=== PATIENT | male | born 1985 | race Hispanic/Latino ===

== ENCOUNTER 2020-02-15 08:50 | Day surgery (SDC) | payer BC ==
[2020-02-15] MEDS ORDERED: FENTANYL CITR 100 MCG/2 ML ONE (09:13)
[2020-02-15] MEDS ORDERED: propofoL 200 MG/20 ML VIAL IV ONE (09:13)
[2020-02-15] MEDS ORDERED: MIDAZOLAM HCL 2 MG/2 ML INJ ONE (09:13)
[2020-02-15] MEDS ORDERED: dexAMETHasone 4 MG/ML VIAL ONE (09:13)
[2020-02-15] MEDS ORDERED: ONDANSETRON 4 MG/2 ML VIAL ONE ×2 (09:13→11:08)
[2020-02-15] MEDS ORDERED: LIDOCAINE 1% MPF 5 ML VIAL ONE (09:13)
[2020-02-15] MEDS ORDERED: KETOROLAC 30 MG/ML INJ ONE (09:13)
[2020-02-15] MEDS ORDERED: Ringers Lactate 1,000 ML IV ONE (09:27)
[2020-02-15] MEDS ORDERED: CEFAZOLIN/SWI 1gm 1 GM/10 ML SYR ONE (09:27)
[2020-02-15 09:31] LABS: Absolute Lymphocytes (CBC) 1.7 K/uL (0.7-4.9); Basophils % 0.5 % (0-1.3); Lymphocytes % 17.9 % (15.3-44.8); MPV 9.1 fL (7.6-11.3); RBC Red Blood Cell Count 5.49 M/uL (4.33-5.43)
[2020-02-15] MEDS: HYDROMORPHONE HCL 1 MG/ML INJ ONE ×2 (10:48→10:53)
[2020-02-15] MEDS ORDERED: HYDROMORPHONE HCL 1 MG/ML INJ ONE (11:08)
--- NOTE | 2020-02-15 11:14 | OP ---
Date of Procedure: 02/15/2020 Surgeon: Ángel Branch MD Metal Room Dental Technician: JENNA Riddle Preoperative Diagnosis: Thrombosed hemorrhoid. Postoperative Diagnosis: Thrombosed hemorrhoid x2. Procedure Performed: Exam under anesthesia, rigid proctoscopy, hemorrhoidectomy x2. Estimated Blood Loss: Minimal. Specimen: Thrombosed hemorrhoids x2. Finding: As above. Anesthesia: General. Complications: None. Disposition: The patient tolerated the procedure in stable condition, taken to Recovery in good gene ral condition. Procedure In Detail: The patient was brought to the OR and placed in the supine position. General a nesthesia begun. The patient was placed in the lithotomy position. Prepped draped in usual sterile fashion and then exam under anesthesia revealed 2 right lateral thrombosed external hemorrhoids. The re were some internal hemorrhoids but they were not thrombosed, they were small on the left side. Mccoy bsequently, rigid proctoscopy was performed. No other evidence of disease identified. Marcaine 0.5% was infiltrated locally and then a Harmonic Scalpel was used to excise both thrombosed hemorrhoids a nd all clots removed. Bleeding was controlled with cautery. Then, a rectal pack consisting of Gel-F oam, Surgicel dressing was placed and sterile dressing was applied. Patient was awakened and taken t o Recovery in good general condition. Discharge Note: The patient will go to Day Surgery and home when stable. Disposition: Home. Condition: Stable. Discharge Instructions: Resume home medications and diet. Activity as tolerated. No heavy lifting. Follow up in my office in 2 weeks, call for appointment. High-fiber diet. Metamucil 1 tablespoon p.o. t.i.d. Colace 100 mg p.o. q.12. Sitz baths q.i.d. Procto-HC 2.5% to anus b.i.d. /YOAN Voice ID: [id number] Report ID: [id number]
[2020-02-15] MEDS ORDERED: HYDROCODONE/APAP 10/325 TAB ONE (11:37)
[2020-02-15 12:01] VITALS: BP 134/74; TEMP 97.7; O2SAT 93
== END 2020-02-15 12:25 | disposition home or self-care (01) ==
LOC: OR 08:50
PROVIDERS: ATTEND Surgery
PROC: 0DJD8ZZ Inspection of Lower Intestinal Tract, Via Natural or Artificial Opening Endoscopic (ICD-10-PCS; 2020-02-15)
PROC: 0DBQXZZ Excision of Anus, External Approach (ICD-10-PCS; principal; 2020-02-15 09:30)
DX: K64.5 Perianal venous thrombosis (principal); Z20.828 Contact with and (suspected) exposure to other viral communicable diseases
CPT/HCPCS: 85025; 36415; 88304; 46230; 45300; U0002; J2704; J1100; J2250; J3010; J1170 ×2; J0690; J7120; J2405 ×2